=== PATIENT | female | born 1955 | race Caucasian/White ===

== ENCOUNTER 2025-04-24 19:53 | Emergency (ER) | payer BC, SELFPAY ==
[2025-04-24] VITALS (7 sets, daily range): BP systolic 125–184; BP diastolic 66–83; PULSE 63–98; RESP 16–18; TEMP 36.6–37; O2SAT 95–100; BMI 26.1
--- NOTE | 2025-04-24 20:27 | CTR_ITS ---
PROCEDURE INFORMATION: Exam: CT Head Without Contrast Exam date and time: 04/24/2025 9:03 PM Age: 69 years old Clinical indication: Injury or trauma; Fall; Blunt trauma (contusions or hematomas); Patient tripped and fell face first onto ground. Small hematoma with abrasion to RT frontal. ; Additional info: Fall with injury TECHNIQUE: Imaging protocol: Computed tomography of the head without contrast. Radiation optimization: All CT scans at this facility use at least one of these dose optimization techniques: automated exposure control; mA and/or kV adjustment per patient size (includes targeted exams where dose is matched to clinical indication); or iterative reconstruction. COMPARISON: No relevant prior studies available. RADIATION DOSE METRICS: Total DLP (mGy-cm): 774.38 FINDINGS: Limitations: Evaluation limited by motion artifact. Brain: No acute intracranial hemorrhage. No abnormal extra-axial fluid collection. No midline shift or mass effect. No acute large territory infarct. Cerebral ventricles: No ventriculomegaly. Paranasal sinuses: Visualized paranasal sinuses are clear. Mastoid air cells: Visualized mastoid air cells are clear. Orbital cavities: Status post bilateral intra-ocular lens replacement. Bones: No acute fracture. Soft tissues: Mild soft tissue swelling/hematoma over the right forehead. CT/CT head wo con* [id number] IMPRESSION: 1. Evaluation limited by motion artifact. 2. No acute intracranial abnormality identified. 3. Mild soft tissue swelling/hematoma over the right forehead.
--- NOTE | 2025-04-24 20:27 | CTR_ITS ---
PROCEDURE INFORMATION: Exam: CT Cervical Spine Without Contrast Exam date and time: 04/24/2025 9:06 PM Age: 69 years old Clinical indication: Injury or trauma; Fall; Blunt trauma; Patient tripped and fell face first onto ground. Small hematoma with abrasion to RT frontal. ; Additional info: Fall with injury TECHNIQUE: Imaging protocol: Computed tomography of the cervical spine without contrast. Radiation optimization: All CT scans at this facility use at least one of these dose optimization techniques: automated exposure control; mA and/or kV adjustment per patient size (includes targeted exams where dose is matched to clinical indication); or iterative reconstruction. COMPARISON: CT head wo con* [id number] 04/24/2025 9:03 PM RADIATION DOSE METRICS: Total DLP (mGy-cm): 250.31 FINDINGS: Limitations: Evaluation limited by motion artifact. Bones: No acute fracture. [id number] chronic degenerative changes without severe spinal stenosis. Lungs: Visualized lung apices are clear. Soft tissues: Visualized paravertebral soft tissues demonstrate no acute abnormality. CT/CT cervical spin wo con* [id number] IMPRESSION: 1. Evaluation limited by motion artifact. 2. No definite injury identified.
--- NOTE | 2025-04-24 20:27 | XRR_ITS ---
PROCEDURE INFORMATION: Exam: XR Right Wrist Exam date and time: 04/24/2025 9:12 PM Age: 69 years old Clinical indication: Injury or trauma; Blunt trauma (contusions or hematomas); Right; Patient tripped falling to ground and used RT arm to brace fall. Deformity to RT wrist. ; Additional info: Fall in injury TECHNIQUE: Imaging protocol: Radiologic exam of the right wrist. Views: 3 or more views. COMPARISON: No relevant prior studies available. FINDINGS: Bones/joints: Comminuted distal radius fracture with dorsal displacement of the distal fragments. Ulnar styloid fracture. Moderate degenerative changes. Soft tissues: Soft tissue swelling. XR/XR wrist RT min 3V* [id number] IMPRESSION: Distal radius and ulnar styloid fractures.
--- NOTE | 2025-04-24 20:59 | XRR_ITS ---
PROCEDURE INFORMATION: Exam: XR Right Ankle Exam date and time: 04/24/2025 9:07 PM Age: 69 years old Clinical indication: Injury or trauma; Blunt trauma; Right; Patient tripped falling onto ground. C/O RT ankle pain. ; Additional info: Fall, injury TECHNIQUE: Imaging protocol: Radiologic exam of the right ankle. Views: 3 or more views. COMPARISON: No relevant prior studies available. FINDINGS: Bones/joints: No fracture. Soft tissues: Soft tissue swelling particularly over the lateral malleolus. Other findings: 3 mm metallic fragment posterior to the distal tibia/fibula. XR/XR ankle RT min 3V* [id number] IMPRESSION: See above.
--- NOTE | 2025-04-24 21:02 | ED_ITS ---
HPI - Fall 2 General: Chief Complaint: Fall Stated Complaint: fall hit head, right arm right leg/ankle left hand Time Seen by Provider: 04/24/25 20:55 History of Present Illness: Patient is a 69-year-old female presents to ED after falling in a ditch with contusion to right ankle, right wrist, and right forehead. This happened just prior to arrival. Fall from: standing Fall witnessed: yes, by bystander Place fall occurred: other (cemetary) Loss of consciousness: None Associated symptoms-after fall: Reports headache(s); Denies abdominal pain, chest pain or neck pain Related Data Allergies Allergy/AdvReac Type Severity Reaction Status Date / Time No Known Allergies Allergy Verified 04/24/25 20:04 Review of Systems 2 General: Reports: 10 or more systems reviewed and unremarkable except in HPI and below Const: Denies: fever(s) or chills Eyes: Denies: change in vision or blurry vision Card: Denies: chest pain or palpitations Resp: Denies: dyspnea or productive cough GI: Reports: nausea; Denies: abdominal pain or vomiting : Denies: flank pain or difficulty voiding Musc: Reports: extremity pain, joint pain and joint swelling; Denies: neck pain Neuro: Reports: headache(s), weakness in extremities and sensory changes; Denies: numbness in extremities Psych: Denies: anxiety or depression Physical Exam 2 Const: COMMON NORMALS: patient oriented x3 and alert O RIENTATION/CONSCIOUSNESS: Yes oriented to person, Yes oriented to place and Yes oriented to time HENMT: HEAD IMAGES: 1. contusion Chest: COMMONS NORMALS: normal inspection of the chest and normal palpation of entire chest wall Resp: COMMON NORMALS: normal respiratory effort, No retractions, No use of accessory muscles and clear to auscultation bilaterally EFFORT & INSPECTION: Yes able to speak in complete sentences AUSCULTATION: clear to auscultation bilaterally Cardio: COMMON NORMALS: regular rate, regular rhythm, S1 normal heart sound present and S2 normal heart sound present RATE: regular rate RHYTHM: r egular rhythm HEART SOUNDS: S1 normal heart sound present and S2 normal heart sound present GI: COMMON NORMALS: Normal to inspection, nondistended, normoactive bowel sounds present, Soft to palpation and non-tender PALPATION: Yes Soft to palpation : COMMON NORMALS: Yes no CVA tenderness BLADDER/KIDNEY EXAM: Yes no CVA tenderness Back/Pelvis: COMMON NORMALS: no CVA tenderness Extremity: RIGHT UPPER EXTREMITY: Yes wrist Right wrist: No ROM (due to pain and obvious dislocation) and Yes neurovascular exam and Yes hand & digits Neuro: COMMON NORMALS: patient oriented x3 and CN's II-XII intact bilaterally SENSORIUM/ORIENTATION: Yes alert, Yes oriented to person, Yes oriented to place and Yes oriented to time Psych: COMMON NORMALS: speech normal ATTITUDE: Yes agitated SPEECH: Yes normal speech Procedures Orthopedic Joint Reduction Joint #1: Time Out Performed: Yes Side: right Joint Reduction Location: wrist Analgesia: procedural sedation Shoulder Technique Used (if applicable): traction/counter-traction Post-reduction neuro exam: intact Post Reduction X-Ray Obtained: Yes Procedural Sedation Time of Last PO Intake: 12:00 Preparation: telemetry monitor applied, pulse oximeter, supplemental O2 applied, suction/airway equipment at bedside and IV secured Ketamine dose (mg): 70 Patient Tolerated Procedure: well and no complications Course 2 Vital Signs: Vital signs: Vital Signs Temperature 98.6 F 04/24/25 22:41 Pulse Rate 67 04/24/25 23:00 Respiratory Rate 16 04/24/25 23:50 Blood Pressure 155/71 04/24/25 23:00 Pulse Oximetry 98 04/24/25 23:00 Oxygen Delivery Me thod Nasal Cannula 04/24/25 23:00 Oxygen Flow Rate 2 04/24/25 23:00 MDM - Fall Medical Decision Making Patient is 69-year-old female that presents with distal mildly displaced radial ulnar fracture. This was reduced. Awaiting postreduction x-ray. Lab Data Radiology Impressions Cervical Spine CT 04/24/25 20:27 IMPRESSION: 1. Evaluation limited by motion artifact. 2. No definite injury identified. Head CT 04/24/25 20:27 IMPRESSION: 1. Evaluation limited by motion artifact. 2. No acute intracranial abnormality identified. 3. Mild soft tissue swelling/hematoma over the right forehead. Ankle X-Ray 04/24/25 20:59 IMPRESSION: See above. Wrist X-Ray 04/24/25 23:32 IMPRESSION: See above. All radiology interpretation(s) finalized by discharge Discharge Plan Discharge Patient Disposition: Home Clinical Impression: Closed fracture of right radius and ulna Qualifiers: Encounter type: initial encounter Qualified Code(s): S52.91XA - Unspecified fracture of right forearm, initial encounter for closed fracture Contusion of head Qualifiers: Encounter type: initial encounter Contusion of head detail: scalp Qualified Code(s): S00.03XA - Contusion of scalp, initial encounter Condition: Stable Discharge Orders: Discharge ED (Routine); Ordered 04/24/25 Ordered By: Shahana Winkler Referrals: Avery Das MD [Physician, Orthopedics] Discharge Diet: Usual diet Discharge Activity: Resume usual activity Patient Instructions: Wrist Fracture in Adults (ED), Closed Reduction (ED), Opioid Safety, Pain Management Activity Restrictions/Additional Instructions: Follow-up with your orthopedic when you get back to [place]. You have been referred to the local orthopedic if you are still in town?call on Saturday for appointment You currently have a temporary splint that will need to be casted and followed up with orthopedics. You were given oxycodone 5 mg to take 1?2 every 6 hours as needed for pain, #15 Add Colace daily to avoid constipation Caution on opioids use. Do not drive. Print Language: Tajik Coding Level of Care Code ED Processor Inspector for Jos eRafael Fitch
[2025-04-24] MEDS: HYDROcodone-acetaminophen 10-325 mg Tablet 1 TAB PO (21:23)
[2025-04-24] MEDS: ketamine 100 mg/mL Inj 5 mL 70 MG IVP (22:40)
--- NOTE | 2025-04-24 23:32 | XRR_ITS ---
PROCEDURE INFORMATION: Exam: XR Right Wrist Exam date and time: 04/24/2025 11:34 PM Age: 69 years old Clinical indication: Other: Post-reduction; Additional info: Post reduction, unless already done (c/n find) TECHNIQUE: Imaging protocol: Radiologic exam of the right wrist. Views: 1 or 2 views. COMPARISON: CR (UP EXM, ) 04/24/2025 9:12 PM FINDINGS: Tubes, catheters and devices: Overlying splint limits evaluation. Bones/joints: Distal radius fracture with dorsal displacement. Ulnar styloid fracture. Scapholunate widening suggesting ligamentous injury. Soft tissues: Unremarkable. XR/XR wrist RT 2V [id number] IMPRESSION: See above.
[2025-04-24] MEDS: oxyCODONE-APAP 10-325 mg Tablet 1 TAB PO (23:50)
[2025-04-24] MEDS: oxyCODONE 5 mg IR Tab/Cap 10 MG PO (23:57)
[2025-04-25 00:08] VITALS: BP 138/62; PULSE 71; RESP 16; O2SAT 99
== END 2025-04-25 00:09 | disposition home or self-care (01) ==
PROVIDERS: Emergency Provider Physician Assistant
DX: S52.91XA Unspecified fracture of right forearm, initial encounter for closed fracture (principal); S00.03XA Contusion of scalp, initial encounter; S90.01XA Contusion of right ankle, initial encounter; S60.211A Contusion of right wrist, initial encounter; W19.XXXA Unspecified fall, initial encounter
CPT/HCPCS: 25605; 70450; 72125; 73100; 73110; 73610; 99152; 99285; J3490; J9999